=== PATIENT | female | born 1985 | race Caucasian/White ===

== ENCOUNTER 2024-11-01 20:24 | Emergency (ER) | payer MEDICAID ==
[~2024-11-01] VITALS: Ht 157.5 cm; Wt 110.0 kg
[2024-11-01 20:27] VITALS: O2SAT 98
[2024-11-01 20:33] VITALS: TEMP 98.4; O2SAT 96
[2024-11-01 21:15] VITALS: BP 130/80; PULSE 92; RESP 20
[2024-11-01] MEDS: KETOROLAC 15MG/ML VIAL IM ONE (21:15)
[2024-11-01] MEDS ORDERED: NAPR-1176 MT (22:47)
== END 2024-11-01 23:01 | disposition home or self-care (01) ==
LOC: EDSEX 20:24 → ER 20:24
DX: S52.501A Unspecified fracture of the lower end of right radius, initial encounter for closed fracture (principal); S52.201A Unspecified fracture of shaft of right ulna, initial encounter for closed fracture; J45.909 Unspecified asthma, uncomplicated; Z88.1 Allergy status to other antibiotic agents; W01.0XXA Fall on same level from slipping, tripping and stumbling without subsequent striking against object, initial encounter; Y93.67 Activity, basketball; Y92.89 Other specified places as the place of occurrence of the external cause; Y99.8 Other external cause status; Z79.1 Long term (current) use of non-steroidal anti-inflammatories (NSAID)
CPT/HCPCS: 99283; 73110; 29125; 96372; J1885